=== PATIENT | male | born 1965 | race Caucasian/White ===

== ENCOUNTER 2018-01-29 10:10 | Day surgery (SDC) | payer OTHER ==
[~2018-01-29] VITALS: Ht 177.8 cm; Wt 80.9 kg
--- NOTE | ~2018-01-29 | HP ---
PATIENT: JOHNNY PEDERSON MEDICAL RECORD: [id number] ACCOUNT: [id number] LOCATION:D.[facility] : 61 ADMISSION DATE: 01/29/18 HISTORY AND PHYSICAL EXAMINATION There is a history and physical examination on the chart. HISTORY OF PRESENT ILLNESS: The patient is here for an EGD and colonoscopy. The patient has gastroesophageal reflux and desires a screening examination for colon polyps or colon cancer. TRANSINT:[id number] Voice Confirmation ID: [id number] DOCUMENT ID: [id number] MONTEZ LYNCH MD at 1157 CC: [id number] DICTATION DATE: 01/29/18 1142 ICING MACHINE OPERATOR: 01/29/18 1208 [facility] 01/29/18 [id number] [place] [address]
--- NOTE | ~2018-01-29 | OP ---
PATIENT NAME: JOHNNY PEDERSON MEDICAL RECORD: [id number] :61 LOCATION:D.OPS ADMISSION DATE: SURGEON: MONTEZ LYNCH MD DATE OF OPERATION: 01/29/2018 PREOPERATIVE DIAGNOSES: 1. Gastroesophageal reflux disease. 2. Desires a screening colonoscopy. POSTOPERATIVE DIAGNOSES: 1. Gastroesophageal reflux disease. 2. Desires a screening colonoscopy. 3. 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 This was a continuous segment of Uribe's. 4. Moderately sized hiatal hernia. 5. Mild prepyloric gastritis. 6. Probable hypertrophied Angelica glands of the first portion of the duodenum. 7. Marginal colonic prep. 8. One rectal polyp, semi pedunculated, 1.0 cm. 9. Gastric polyps. PROCEDURES: 1. Esophagogastroduodenoscopy with duodenal gastric and esophageal biopsies. 2. Gastric hot biopsy forceps polypectomy times 1. 3. Total colonoscopy to cecum. 4. Rectal hot biopsy forceps polypectomy times 1. SURGEON: Montez Lynch MD. IT INVESTMENT/PORTFOLIO MANAGER: None. BLOOD LOSS: Minimal. ANESTHESIA: IV sedation. COMPLICATIONS: None. ENDOSCOPIC COURSE: A consent form was signed. The patient was conveyed to the endoscopy suite electively on 01/29/2018. IV sedation was induced by the anesthesia staff. A bite block was inserted. A gastroscope was inserted in the mouth. It was advanced easily into the hypopharynx. The esophagus was easily intubated as were the stomach and duodenum. Upon withdrawal, retroflexed and angulus views were obtained. Duodenal biopsies were obtained. These were cold endoscopic biopsies obtained in the duodenal bulb and an area that appeared to contain hypertrophied Angelica glands. I then withdrew into the antrum of the stomach. Antral cold endoscopic biopsies were obtained. I then withdrew into the esophagus. Every cm up in the area of Uribe's, I did 4 quadrant biopsies and these were cold endoscopic biopsies. I then advanced down into the stomach again. The largest gastric polyp was removed utilizing the hot biopsy forceps polypectomy technique. Another 10 polyps were then cauterized in order to ablate them. The endoscope was then withdrawn under direct vision. The patient was turned 180 degrees and placed in the Cardoza position. A digital rectal examination was performed. A colonoscope was inserted through the anus. It was easily advanced to the cecum. Upon withdrawal, I irrigated and aspirated OPERATIVE REPORT [id number] JOHNNY PEDERSON. I dragged the folds. The pullback was greater than a 15-minute pullback. A combination of normal imaging and narrow band imaging were utilized. A single hot biopsy forceps polypectomy was performed. A retroflexed view was obtained in the rectum. I then unretroflexed the scope and removed it under direct vision. I will see the patient in my office in 2-3 weeks. If there is no dysplasia found in the area of Uribe's esophagus, then I will plan for his next upper surveillance endoscopy with biopsies to take place in 1 year. It is very likely that the polyp that I remove was an adenomatous polyp and if it is, then he will need to undergo a surveillance colonoscopy again in 1 year as well. TRANSINT:[id number] Voice Confirmation ID: [id number] DOCUMENT ID: [id number] MONTEZ LYNCH MD at 1157 CC: BLANCA HUMPHREY [id number] DICTATION DATE: 01/29/18 1303 PERSONAL BANKER: 01/29/18 1527 [facility] 01/29/[address] [facility] [address] [place] [address]
[2018-01-29] MEDS ORDERED: TUMERIC (10:41)
[2018-01-29] MEDS ORDERED: B12 (10:41)
[2018-01-29] MEDS ORDERED: OMEGA 3 FISH OI1 CAP PO (10:41)
[2018-01-29] MEDS ORDERED: B COMPLEX VITAMIN (10:42)
[2018-01-29 10:48] VITALS: BP 122/70; Ht 177.8 cm; Wt 80.9 kg
== END 2018-01-29 14:09 | disposition home or self-care (01) ==
LOC: D.OPS 10:10
DX: Z12.11 Encounter for screening for malignant neoplasm of colon (principal); K21.9 Gastro-esophageal reflux disease without esophagitis; G47.30 Sleep apnea, unspecified; K22.70 Barrett's esophagus without dysplasia; K44.9 Diaphragmatic hernia without obstruction or gangrene; K29.60 Other gastritis without bleeding; K62.1 Rectal polyp; K31.7 Polyp of stomach and duodenum; Z01.812 Encounter for preprocedural laboratory examination